=== PATIENT | male | born 1965 | race Caucasian/White ===

== ENCOUNTER → 2021-04-16 | Outpatient (CLI) | payer OTHER | LOC: EXRD 04-12 08:30 | DX: R74.8 Abnormal levels of other serum enzymes (principal); R10.11 Right upper quadrant pain | CPT/HCPCS: 76705 ==

== ENCOUNTER 2021-10-12 13:05 | Emergency (ER) | payer OTHER ==
[2021-10-12 14:12] LABS: HEMOGLOBIN 9.8 gm/dl (14.0-17.5); RED BLOOD COUNT 3.36 M/UL (4.20-5.50); WHITE BLOOD COUNT 15.1 K/UL (4.5-11.0)
[2021-10-12 14:30] LABS: BUN/CREATININE RATIO 21 (0-10)
== END 2021-10-12 21:27 | disposition short-term general hospital (02) ==
LOC: ER1 13:05
PROVIDERS: Emergency Medicine
DX: T81.49XA Infection following a procedure, other surgical site, initial encounter (principal); I10 Essential (primary) hypertension; J44.9 Chronic obstructive pulmonary disease, unspecified; Z20.822 Contact with and (suspected) exposure to COVID-19
CPT/HCPCS: 71045; 80053; 81001; 83605; 83690; 85025; 87040; 93005; 96374; 96375; 96376; 99285; J1170; J2270; J2405; J2543; J3370; J7030; Q9967; U0002